=== PATIENT | female | born 1985 | race Caucasian/White ===

== ENCOUNTER 2018-09-01 08:04 | Inpatient (IN) | payer MEDICAID ==
[~2018-09-01] VITALS: Ht 165.1 cm; Wt 99.1 kg
[~2018-09-01 08:04] MED LIST: EPHEDrine 25 MG/5 ML SYG ONE; PRENAT PO
[2018-09-01] MEDS ORDERED: LACTATED RINGER'S 1,000 ML IV SCH (08:46)
[2018-09-01 08:51] VITALS: Ht 165.1 cm; Wt 99.1 kg
[2018-09-01] MEDS ORDERED: OXYTOCIN 30 UNITS/LR 500 ML IV SCH ×2 (09:00→19:53)
[2018-09-01] MEDS ORDERED: CEFAZOLIN 2 GM/50 ML (PMX) 50 ML IVPB SCH (09:00)
[2018-09-01] MEDS ORDERED: METHYLERGONOVINE 0.2 MG INJ IM PRN ×2 (09:00→20:00)
[2018-09-01] MEDS ORDERED: CARBOPROST 250 MCG INJ IM PRN ×2 (09:00→20:00)
[2018-09-01] MEDS ORDERED: OXYTOCIN 30 UNITS/LR 500 ML IV PRN ×2 (09:00→20:00)
[2018-09-01] MEDS ORDERED: MISOPROSTOL 200 MCG TAB PR PRN ×2 (09:00→20:00)
--- NOTE | 2018-09-01 12:40 | HP ---
Date/Time of Note Date/Time of Note DATE: 09/01/18 TIME: 12:30 OB - History Hx of Present Free Text/Dictation 33 years old -0-2-2 with breech presentation and single intrauterine at 39 weeks with MAGED of 09/26/2018 desired delivery and permanent surgical sterilization. She states good movement. She denies nausea, vomiting, shortness of breath, chest pain, headache, visual changes, vaginal bleeding or LOF. Chief Complaint: Scheduled for primary delivery and bilateral tubal ligation Estimated Due Date: Sep 08, 2018 : 5 Para: 2 Spontaneous : 2 Therapeutic : 0 Care: Good Care Ultrasounds: Normal mid trimester US Obstetrical Complications: None Medical Complications: None Past Family/Social History * Past Medical, Surgical, Family and Obstetric Histories reviewed from chart. Blood Type: O+ Rubella: immune RPR/VDRL: Negative GBS Status: Positive HBsAG: Negative OB Admission Exam Vital Signs Vital Signs Pressure 120/67, pulse rate 70/minutes, respiratory rate 16/minutes, temperature 98.6 Physical Exam HEENT: WNL Heart: Rhythm Normal Lungs: Clear Abdomen: WNL Extremities: Normal Reflexes: Normal Membranes: Intact Heart Rate: 130's Accelerations: Accelerations Present Decelerations: No Decelerations Varibility: Moderate Contractions on Admission: None Last 72 hours Lab Results CBC & BMP 09/01/18 09:16 OB Assessment/Plan Other plan: 33 years old -0-2-2 with breech presentation at 39 weeks desires repeat delivery and permanent surgical sterilization-FHR: No sign of metabolic acidosis- Category I -Continuous EFM, toco -CBC, blood type and screen -Please see the orders -O+/Rubella: Immune -GBS: Positive The risk of delivery including but not limited to bleeding, infection, injury to other organs (bowel, bladder, ureter, vessels, nerves), injury to fetus, blood transfusion, blood transfusion related infection, risk of anesthesia, adhesion, needs for future , removal of uterus or any other indicated surgery, permanent surgical sterilization, other contraceptive options including IUD, increased risk of ectopic if failure of procedure occurs discussed with the patient and her family. She expressed understanding. All of her questions were answered. She signed the informed consent. PHYSICIAN'S VERIFICATION OF INFORMED CONSENT The patient was counseled regarding the procedure, its indications, risks, potential complications and alternatives and any questions were answered. Consent was obtained. PLANNED PROCEDURE/TREATMENT: delivery with possible using vacuum/forceps, bilateral tubal ligation and any other indicated surgery PHYSICIAN'S VERIFICATION OF INFORMED CONSENT FOR BLOOD TRANSFUSION: There is a reasonable possibility that blood transfusion will be necessary as a result of the patient's procedure. I have discussed the following with the patient/patient's legal security representative: An explanation of the benefits and risks of the transfusion of blood or blood products and the possible a lternatives. All questions have been answered to the patient's satisfaction. INFORMED CONSENT:The patient has been informed of: The nature of the proposed care, treatment, services, medications, int erventions or procedures. Potential benefits, risks or side effects, including potential problems r elated to recuperation. The likelihood of achieving care treatment and service goals. Reasonable alternatives to the proposed care, treatment and service. The relevant risks, benefits and side effects related to alternatives, including the possible results of not receiving care, treatment and services. When indicated, any limitations on the confidentiality of information learned from or about the patient. If appropriate, the risks, benefits and alternatives of the drugs to be used for sedation/analgesia including moderate sedation. If appropriate, patient has been provided information on the risks, benefits and alternatives to the transfusion of blood and/or blood products. If appropriate, patient has been provided information regarding the [employer] Blood Act. AMANDA LAMB September 01, 2018 12:40
[2018-09-01] MEDS ORDERED: morphine SULFATE/PF (10 MG/10 ML) INJ ONE (13:46)
[2018-09-01] MEDS ORDERED: LACTATED RINGER'S 1,000 ML IV ONE (14:16)
--- NOTE | 2018-09-01 14:16 | PREAC ---
Date/Time of Note Date/Time of Note DATE: 09/01/18 TIME: 14:12 Anesthesia Eval and Record Evaluation Time Pre-Procedure Interview DATE: 09/01/18 TIME: 13:32 Age 33 Sex female NPO: 8 hrs Preoperative diagnosis iup @ 39 wks., , sterilization request, contractions, breech presentation Planned procedure primary c/s, bilateral tubal ligation Past Medical History Past Medical History: Includes : : (5), Para: (2), Gestational age: (39 wks.) Surgery & Anesthesia Issues No known issue Meds Anticoagulation: No Beta Chuy within 24 hr: No Reason Beta Chuy not given: Pt. not on B-Chuy Reported Medications Multivit/Min/Fol Ac/Iron/Pren* ( S*) 1 Tab Tab, 1 TAB PO DAILY, TAB 04/21/14 Current Medications Lactated Ringer's 1,000 ml @ 125 mls/hr Q8H IV Last administered on 09/01/18at 09:59; Admin Dose 125 MLS/HR; Start 09/01/18 at 08:46 Cefazolin Sodium/ Dextrose 50 ml @ 100 mls/hr ONCE IVPB ; Start 09/01/18 at 09:00 Oxytocin/Lactated Ringer's 500 ml @ 125 mls/hr POST IV ; Start 09/01/18 at 09:00 Oxytocin/Lactated Ringer's 500 ml @ 0 mls/hr ONCE PRN IV .VAGINAL BLEEDING; Start 09/01/18 at 09:00 Methylergonovine Maleate (Methergine) 0.2 mg ONCE PRN IM .VAGINAL BLEEDING; Start 09/01/18 at 09:00 Carboprost Tromethamine (Hemabate) 250 mcg ONCE PRN IM .VAGINAL BLEEDING; Start 09/01/18 at 09:00 Misoprostol (Cytotec) 1,000 mcg ONCE PRN NV .VAGINAL BLEEDING; Start 09/01/18 at 09:00 Meds reviewed: Yes Allergies Coded Allergies: No Known Allergy (Unverified , 04/21/14) Allergies Reviewed: Yes Labs/Studies Labs Reviewed: Reviewed by anesthesiologist Result Diagram: 09/01/18 0916 Laboratory Tests 09/01/18 09:16 Blood Bank Test 09/01/18 09:16 Antibody Screen NEGATIVE Blood Type O POSITIVE Rh Immune Globulin Candidate NO test: Positive Studies: ECG (na/), CXR (n/a) Pre-procedure Exam Airway: Adequate mouth opening, Adequate thyromental dist Mallampati: Mallampati II Teeth: Normal Lung: Normal Heart: Normal ASA Physical Status ASA physical status: 2 Emergency: E Planned Anesthetic General/MAC: MAC Neuraxial: Spinal Planned Pain Management Sub-arachniod narcotics, Local by surgeon Pre-operative Attestations Prior to commencing anesthesia and surgery, the patient was re-evaluated, there was verification of: *The patient's identity *The results of appropriate recent lab work and preoperative vital signs *The above evaluation not changing prior to induction *Anesthetic plan, risk benefits, alternative and complications discussed with patient/family; questions answered; patient/family understands, accepts and wishes to proceed. Adolescent Psychiatrist used MARGARITA NEW MD September 01, 2018 14:16
[2018-09-01] MEDS ORDERED: KETOROLAC 30 MG INJ IV PRN (14:30)
[2018-09-01] MEDS ORDERED: ZOLPIDEM 5 MG TAB PO PRN (14:30)
[2018-09-01] MEDS ORDERED: HYDROmorphONE 0.5 MG/0.5 ML SYG IV PRN ×2 (14:30)
[2018-09-01] MEDS ORDERED: MEPERIDINE 25 MG INJ IV PRN (14:30)
[2018-09-01] MEDS ORDERED: MIDAZOLAM 1 MG/ML 2 ML INJ ONE (14:30)
[2018-09-01] MEDS ORDERED: ONDANSETRON 4 MG INJ IV PRN (14:30)
[2018-09-01] MEDS ORDERED: NALOXONE (0.4 MG/ML) INJ IV PRN (14:30)
[2018-09-01] MEDS ORDERED: NALBUPHINE HCL (10 MG/1 ML) INJ IV PRN (14:30)
[2018-09-01] MEDS ORDERED: DIPHENHYDRAMINE 50 MG INJ IV PRN ×2 (14:30)
[2018-09-01] MEDS ORDERED: MIDAZOLAM 1 MG/ML 2 ML INJ IV PRN (14:30)
[2018-09-01] MEDS ORDERED: ONDANSETRON 4 MG INJ ONE (14:31)
[2018-09-01] MEDS ORDERED: KETOROLAC 30 MG INJ ONE (14:53)
[2018-09-01] MEDS ORDERED: OXYTOCIN 10 UNIT INJ ONE (15:03)
[2018-09-01] MEDS ORDERED: PROMETHAZINE (1.25 MG/ML) 5 ML CUP PO ONE (16:00)
[2018-09-01] MEDS ORDERED: METOCLOPRAMIDE 10 MG INJ ONE (17:34)
[2018-09-01] MEDS ORDERED: METOCLOPRAMIDE 10 MG INJ IV ONE (18:00)
--- NOTE | 2018-09-01 18:33 | OPR ---
Operative Report Planned Procedure Procedure date September 01, 2018 Procedure(s) 1. Primary low transverse delivery 2. Bilateral tubal ligation Performed by see signature line Mapping Pilot: LEE ANN SON MD Anesthesiologist: MARGARITA NEW MD Pre-procedure diagnosis 33 years old -0-2-2 with breech presentation at 39 weeks desires repeat bill arean delivery and permanent surgical sterilization- [id number] Anesthesia Type: [id number] spinal Post-Procedure Post-procedure diagnosis 33 years old -0-2-2 with transverse presentation at 39 weeks desires repeat delivery and permanent surgical sterilization- Findings 1. Normal uterus, fallopian tubes and ovaries 2. Viable female in transverse presentation. 8 at one minute and 9 in 5 minutes. Weight: 8 pounds 12 ounces. Time of delivery: 14:28 3. Placenta with three vessel cord 4. Amniotic fluid - Clear Estimated Blood Loss: 500 - 600 mls Specimen(s) none Grafts/Implant(s) none Complication(s) none Pt Condition post procedure: stable Disposition: PACU Procedure Description INDICATION AND HISTORY: A 33 years old -0-2-2 with breech presentation at 39 weeks desires repeat delivery and permanent surgical sterilization. The risk of delivery including but not limited to bleeding, infection, injury to other organs (bowel, bladder, ureter, vessels, nerves), injury to fetus, blood transfusion, blood transfusion related infection, risk of anesthesia, adhesion, needs for future , removal of uterus or any other indicated surgery, surgical sterilization, other contraceptive options including IUD, increased risk of ectopic occurs discussed with the patient and her family. She expressed understanding. All of her questions were answered. She signed the informed consent. DESCRIPTION OF OPERATION: The patient was taken to the operating room, where she was identified and the procedure was verified. The patient received two gram of Ancef 30 minutes prior to surgery. Spinal anesthesia was placed. The patient placed in the dorsal supine position with a left tilt. The heart rate was *bpm. The patient was then prepped and draped in the normal sterile fashion. A Pfannenstiel skin incision was made and carried down to the fascia with knife. The fascia was incised in the midline and the fascial incision was carried laterally with Henry scissors. The superior portion of the fascial incision was then grasped with Clark clamps and tented up and dissected off the underlying rectus muscle with sharp dissection. The lower portion of the fascial incision was then made in a similar fashion. The rectus muscle was and the peritoneum was entered. The peritoneal incision was then stretched and a bladder blade was inserted. Then, an incision was made in the lower uterine segment in a transverse fashion with a knife and extended bluntly. The was delivered atraumatically in double footling presentation with the above findings. The umbilical cord was clamped and cut. The neonatology resuscitation team was present and the baby was handed to them. A cord blood sample was obtained for further evaluation. The placenta and membrane, which appeared normal were Removed. The uterus was exteriorized and cleared of all clot and debris. The uterus was then closed in a two layer fashion with 0-Monocryl. At the time of closure, hemostasis was noted. Then the left fallopian tube was identified and was grasped using [place] clamp, segment of distal fallopian tube including fimbria was double ligated with O- plain, excised and sent to pathology. Same procedure repeated at the right side. Hemostasis of stump of both fallopian tube reassured. The gutters were irrigated. The peritoneum was reapproximated with 3-0 Vicryl. The muscle was reapproximated with 3-0 Vicryl. The fascia was approximated with 0-Vicryl in a running fashion. The subcutaneous tissue was re approximated with 3-0 vicryl. The skin was closed with 4-0 Monocryl. All instruments, sponges and needle counts were correct x3. The patient tolerated the procedure well. She transferred to the recovery room in stable condition. AMANDA LAMB September 01, 2018 18:33
[2018-09-01] MEDS: DEXTROSE 5%-LR 1,000 ML IV SCH (19:53)
[2018-09-01 20:00] VITALS: BP 108/52; PULSE 66; RESP 20
[2018-09-01] MEDS ORDERED: MAGNESIUM HYDROXIDE 30ML CUP PO PRN (20:00)
[2018-09-01] MEDS ORDERED: LANOLIN HPA 1 PKT TOP PRN (20:00)
[2018-09-01] MEDS ORDERED: METHYLERGONOVINE 0.2 MG TAB PO PRN (20:00)
[2018-09-01] MEDS: SENNA/DOCUSATE NA (8.6MG/50MG) TAB PO SCH (21:00)
[2018-09-02] VITALS: BP 110/57; PULSE 84; RESP 17
[2018-09-02 04:00] VITALS: BP 112/58; PULSE 80; RESP 18
--- NOTE | 2018-09-02 04:09 | PAC ---
Date/Time of Note Date/Time of Note DATE: 09/02/18 TIME: 04:09 Post-Anesthesia Notes Post-Anesthesia Note Last documented vital signs Vital Signs Date Temp Pulse Resp B/P (MAP) Pulse Ox O2 O2 Flow FiO2 Time Delivery Rate 09/01/18 98.0 66 20 108/52 98 Room Air 20:00 (70) Activity: WNL Respiratory function: WNL Cardiovascular function: WNL Mental status: Baseline Pain reasonably controlled: Yes Hydration appropriate: Yes Nausea/Vomiting absent: Yes MARGARITA NEW MD September 02, 2018 04:09
--- NOTE | 2018-09-02 04:11 | OPPN ---
Date/Time of Note Date/Time of Note DATE: 09/02/18 TIME: 04:09 Anesthesia Follow up Anesthesia Follow up Last documented vital signs Vital Signs Date Temp Pulse Resp B/P (MAP) Pulse Ox O2 O2 Flow FiO2 Time Delivery Rate 09/01/18 98.0 66 20 108/52 98 Room Air 20:00 (70) Respiratory function: WNL Cardiovascular function: WNL Comments S: pt. is POD #1. min. bt. pain. min. need for bt. pain meds ie. nsaids/opiates. ambulating. min. n/v. O: vss, afeb. A: min. bt pain sec. to it mso4. P: no complications. MARGARITA NEW MD September 02, 2018 04:11
[2018-09-02] MEDS: DEXTROSE 5%-LR 1,000 ML IV SCH ×2 (06:55→11:53)
[2018-09-02 08:00] VITALS: BP 107/49; PULSE 70; RESP 17
[2018-09-02] MEDS: SENNA/DOCUSATE NA (8.6MG/50MG) TAB PO SCH ×2 (09:20→21:00)
[2018-09-02] MEDS ORDERED: DIPHTH/TET/ACEL PERTUSS (ADULT) 0.5 ML VIAL IM* ONE (11:00)
[2018-09-02 12:00] VITALS: BP 123/62; PULSE 71; RESP 17
[2018-09-02] MEDS: HYDROCODONE/APAP (5/325) TAB NGT PRN ×2 (15:04→18:57)
--- NOTE | 2018-09-02 15:35 | QN ---
Documentation Comment Postop day #1 Status post primary and BTL Patient stable and afebrile Vital signs stable VS - Last 72 Hours, by Label Date Temp Pulse Resp B/P (MAP) Pulse Ox O2 O2 Flow FiO2 Time Delivery Rate 09/02/18 98.2 71 17 123/62 100 Room Air 12:00 (82) 09/02/18 98.0 70 17 107/49 100 Room Air 08:00 (68) 09/02/18 98.6 80 18 112/58 97 Room Air 04:00 (76) 09/02/18 98.2 84 17 110/57 98 Room Air 00:00 (74) 09/01/18 98.0 66 20 108/52 98 Room Air 20:00 (70) Hematology - 72 Hrs Test 09/01/18 09:16 09/02/18 06:39 Hematocrit 27.6 % (37.0-47.0) #L 24.1 % (37.0-47.0) L Hemoglobin 8.7 g/dl (12.0-16.0) #L 7.5 g/dl (12.0-16.0) L Mean Corpuscular 21.2 pg (29.0-33.0) #L 21.4 pg (29.0-33.0) L Hemoglobin Mean Corpuscular 31.5 g/dl (32.0-37.0) L 31.1 g/dl (32.0-37.0) L Hemoglobin Concent Mean Corpuscular Volume 67.3 fl (82.0-101.0) L 68.7 fl (82.0-101.0) L Mean Platelet Volume 10.3 fl (7.4-10.4) 10.5 fl (7.4-10.4) H Platelet Count 301 10^3/UL (140-415) 263 10^3/UL (140-415) Red Blood Count 4.10 10^6/ul (4.20-5.40) 3.51 10^6/ul (4.20-5.40) L L Red Cell Distribution 16.8 % (11.5-14.5) H 16.4 % (11.5-14.5) H Width White Blood Count 9.3 10^3/ul (4.8-10.8) # 10.5 10^3/ul (4.8-10.8) Abdomen soft, fundus firm Incision clean,dry,intact Extremities nontender Assessment and plan Patient stable and doing well Encouraged to ambulate CBC in a.m. Continue with routine postop care WOOD LOPES MD September 02, 2018 15:35
[2018-09-02 15:45] VITALS: BP 127/59; PULSE 86; RESP 16
[2018-09-02 20:45] VITALS: BP 116/64; PULSE 87; RESP 18
[2018-09-02] MEDS: HYDROCODONE/APAP (5/325) TAB GTB SCH (21:50)
[2018-09-02] MEDS: IBUPROFEN 800 MG TAB PO SCH (21:51)
[2018-09-03 04:00] VITALS: BP 111/58; PULSE 68; RESP 18
[2018-09-03] MEDS: IBUPROFEN 800 MG TAB PO SCH ×3 (05:35→21:59)
[2018-09-03] MEDS: HYDROCODONE/APAP (5/325) TAB GTB SCH ×3 (05:36→21:58)
[2018-09-03 08:00] VITALS: BP 115/57; PULSE 63; RESP 17
[2018-09-03] MEDS: FERROUS SULFATE (EC) 325 MG TAB PO SCH ×3 (08:38→20:52)
[2018-09-03] MEDS: SENNA/DOCUSATE NA (8.6MG/50MG) TAB PO SCH ×2 (08:38→20:52)
--- NOTE | 2018-09-03 12:06 | QN ---
Documentation Comment POD# 2 is stable afebrile tolerates diet No VB +BM +voids Vs stable Gen NAD Abd soft NT ND Genitalia No blood at perineum --->Discharge plan tomorrow with precautions ---<Repeat CBC GEOVANNY DUENAS M.D. September 03, 2018 12:06
[2018-09-03] MEDS ORDERED: CYANOCOBALAMIN 1000 MCG INJ IM ONE (12:30)
[2018-09-03] MEDS: SOD FERRIC GLUC COMPLX 125 MG in SOD CHLORIDE 0.9% 100 ML IVPB SCH (12:57)
[2018-09-03] MEDS ORDERED: NACL 0.9% 3 ML SYG IV SCH (15:30)
[2018-09-03 16:00] VITALS: BP 112/63; PULSE 70; RESP 16
[2018-09-03 20:30] VITALS: BP 119/56; PULSE 71; RESP 18
[2018-09-04 04:00] VITALS: BP 115/61; PULSE 61; RESP 18
[2018-09-04] MEDS: IBUPROFEN 800 MG TAB PO SCH ×2 (06:04→14:34)
[2018-09-04] MEDS: HYDROCODONE/APAP (5/325) TAB GTB SCH ×2 (06:05→14:34)
[2018-09-04 07:53] VITALS: BP 114/59; PULSE 65; RESP 18
[2018-09-04] MEDS ORDERED: MEASLES,MUMPS,RUBELLA VACCINE INJ SC* ONE (09:00)
[2018-09-04] MEDS ORDERED: DIPHTH/TET/ACEL PERTUSS (ADULT) 0.5 ML VIAL IM* ONE (09:00)
[2018-09-04] MEDS: SENNA/DOCUSATE NA (8.6MG/50MG) TAB PO SCH (09:54)
[2018-09-04] MEDS: FERROUS SULFATE (EC) 325 MG TAB PO SCH ×2 (09:54→13:12)
[2018-09-04] MEDS ORDERED: SOD FERRIC GLUC COMPLX 125 MG in SOD CHLORIDE 0.9% 100 ML IVPB ONE (11:30)
--- NOTE | 2018-09-04 12:41 | PN ---
Date/Time of Note Date/Time of Note DATE: 09/04/18 TIME: 12:40 OB Subjective Subjective Subjective POD# Patient is doing well. She denies nausea, vomiting, shortness of breath, chest pain, headache, dizziness. She has been ambulating without difficulty, tolerating regular diet. Pain is well controlled on current medications OB Objective Objective Objective VS - Last 72 Hours, by Label Date Temp Pulse Resp B/P (MAP) Pulse Ox O2 O2 Flow FiO2 Time Delivery Rate 09/04/18 98.0 65 18 114/59 07:53 (77) 09/04/18 98.0 61 18 115/61 Room Air 04:00 (79) 09/03/18 98.0 71 18 119/56 Room Air 20:30 (77) 09/03/18 98.3 70 16 112/63 Room Air 16:00 (79) 09/03/18 98.0 63 17 115/57 Room Air 08:00 (76) 09/03/18 98.3 68 18 111/58 Room Air 04:00 (75) 09/02/18 98.4 87 18 116/64 Room Air 20:45 (81) 09/02/18 98.7 86 16 127/59 15:45 (81) 09/02/18 98.2 71 17 123/62 100 Room Air 12:00 (82) 09/02/18 98.0 70 17 107/49 100 Room Air 08:00 (68) 09/02/18 98.6 80 18 112/58 97 Room Air 04:00 (76) 09/02/18 98.2 84 17 110/57 98 Room Air 00:00 (74) 09/01/18 98.0 66 20 108/52 98 Room Air 20:00 (70) General: AAO X 3, comfortable, NAD, appropriate mood and affect. ABD: +BS. Soft, non-tender. Uterus 2 cm below umbilicus Incision: Clear, dry, intact. No erythema, drainage or induration. Flank: No CVA tenderness (B/L) LE: Mild edema. No clubbing, cyanosis, thigh or calf tenderness (B/L). Homans 'sign is negative OB Assessment/Plan Other plan: 33-year-old 5 para 3-0-2-3 s/p repeat delivery and bilateral tubal ligation. POD#3 - AF, VSS - Baby is doing well, at bed side. She is bonding well - Contraception methods with R/B/A/FR discussed - Continue care - Discharge home - Rx and instruction given - Follow up in one and 6 weeks 2) iron deficiency anemia: Her hemoglobin on admission was 8.6, after delivery 7.5 and 6.8. Iron profile performed which revealed iron deficiency anemia. Ferrlecit 125 mg I would be given yesterday and today. Vitamin B12 1 mg IM given yesterday. I did recommend ferrous sulfate 325 mg every 8 hours for 2 months then every 12 hours for another 2 months. AMANDA LAMB September 04, 2018 12:41
--- NOTE | 2018-09-04 12:47 | DS ---
Date/Time of Note Date/Time of Note DATE: 09/04/18 TIME: 12:44 Obstetrical Discharge Record Final Diagnosis Final Diagnosis: Term delivered Other Final Diagnosis 33-year-old 5 para 3-0-2-3 s/p repeat delivery and bilateral tubal ligation. POD#3. Her course was unremarkable except for iron deficiency anemia. Her hemoglobin on admission was 8.6, after delivery 7.5 and 6.8. Iron profile study performed which revealed iron deficiency anemia. Ferrlecit 125 mg I would be given yesterday and today. Vitamin B12 1 mg IM given yesterday. I did recommend ferrous sulfate 325 mg every 8 hours for 2 months then every 12 hours for another 2 months. - AF, VSS - Baby is doing well, at bed side. She is bonding well - Continue care - Discharge home - Rx and instruction given - Follow up in one and 6 weeks Section Section: Repeat (And transverse presentation) Condition on Discharge Physical Assessment Voiding: Yes Bowel Movement: Yes Breast: Soft, non-tender Fundus: Firm Calf Tenderness: No Patient Condition: Stable AMANDA LAMB September 04, 2018 12:47
[2018-09-04] MEDS: SOD FERRIC GLUC COMPLX 125 MG in SOD CHLORIDE 0.9% 100 ML IVPB SCH (15:31)
[2018-09-04 16:00] VITALS: BP 129/71; PULSE 68; RESP 19
--- NOTE | 2018-09-05 18:55 | DELSUM ---
Delivery Summary A-C Datetime Report Generated by CPN: 09/05/2018 18:54 DELIVERY PERSONNEL Makeup Artist: Rose, Soraida MATERNAL INFORMATION Delivery Anesthesia: Spinal Medications in Delivery: see anesthesia Delivery QBL (ml): 600 Placenta Cultured: No Maternal Complications: None LABOR SUMMARY EDC: 09/08/2018 00:00 No. Babies in Womb: 1 Attempted: No Labor Anesthesia: None LABOR INFORMATION Reason for Induction: Not Applicable Oxytocin: N/A Group B Beta Strep: Positive Antibiotics # of Doses: 1 Antibiotics Time of Last Dose: 09/01/2018 14:30 Steroids Given: None Reason Steroids Not Administered: Not Applicable MEMBRANES Membranes Rupture Method: Artificial Rupture of Membranes: 09/01/2018 14:26 Length of Rupture (hr): 0.03 Amniotic Fluid Color: Clear Amniotic Fluid Amount: Moderate Amniotic Fluid Odor: None STAGES OF LABOR Stage 3 hr: 0 Stage 3 min: 2 CSECTION DELIVERY Primary Indication: Trans/Complex Presentatio Secondary Indication: N/A CSection Urgency: Non Elective CSection Incidence: Primary Labor: No Labor Elective: Nonelective CSection Incision: Lower Uterine Transverse Sterilization Procedure: Michelle BABY A INFORMATION Infant Delivery Date/Time: 09/01/2018 14:28 Method of Delivery: Born in Route : No : N/A Forceps: N/A Vacuum Extraction: N/A Shoulder Dystocia : N/A SHOULDER DYSTOCIA BABY A Delivery Date/Time: 09/01/2018 14:28 PRESENTATION/POSITION BABY A Presentation: Other Cephalic Presentation: N/A Breech Presentation: N/A PLACENTA INFORMATION BABY A Placenta Delivery Time : 09/01/2018 14:30 Placenta Method of Delivery: Manual Removal Placenta Status: Delivered SCORES BABY A Heart Rate 1 min: >100 bpm Resp Effort 1 min: Good Cry Reflex Irritability 1 min: Cough/Sneeze/Pulls Away Muscle Tone 1 min: Active Motion Color 1 min: Blue/Pale Resuscitation Effort 1 min: Tactile Stimulation; Oxygen SCORE 1 MIN: 8 Heart Rate 5 min: >100 bpm Resp Effort 5 min: Good Cry Reflex Irritability 5 min: Cough/Sneeze/Pulls Away Muscle Tone 5 min: Active Motion Color 5 min: Body [place], Extremit Blue Resuscitation Effort 5 min: Tactile Stimulation SCORE 5 MIN: 9 INFANT INFORMATION BABY A Gestational Age at Delivery: 40.3 Gestational Status: Full Term- 39- 40.6 Weeks Infant Outcome : Liveborn Condition : Stable Infant Sex: Female IDENTIFICATION/MEDS BABY A ID Band Number: [id number] ID Band Location: Right Leg; Left Arm Sensor Applied: Yes Sensor Number: [id number] Sensor Location : Cord Clamp Vitamin K Given : Aquamephyton 0.5 mg IM Erythromycin Given: Given Both Eyes WEIGHT/LENGTH BABY A Infant Birthweight (gm): 3975 Weight (lb): 8 Infant Weight (oz): 12 Length (in): 22.00 Length (cm): 55.88 CORD INFORMATION BABY A No. Cord Vessels: 3 Nuchal Cord : N/A Cord Blood Taken: Yes Suction: Mouth; Nose ASSESSMENT BABY A Complications: None Physical Findings at Delivery: Within Normal Limits Respirations: Appears Normal Scientific Linguist/ALS Called : Yes Infant Care By: RT AND MEN RN Transferred To: Remains with Mother
== END 2018-09-04 18:45 | disposition home or self-care (01) | DRG 785 ==
LOC: L-D 08:04 → PP1 19:27
PROVIDERS: ADMIT Obstetrics & Gynecology; ATTEND Obstetrics & Gynecology
PROC: 0UB70ZZ Excision of Bilateral Fallopian Tubes, Open Approach (ICD-10-PCS; 2018-09-01)
PROC: 10D00Z1 Extraction of Products of Conception, Low, Open Approach (ICD-10-PCS; principal; 2018-09-01 11:00)
DX: O32.8XX0 Maternal care for other malpresentation of fetus, not applicable or unspecified (principal); O99.824 Streptococcus B carrier state complicating childbirth; O99.02 Anemia complicating childbirth; D50.9 Iron deficiency anemia, unspecified; Z3A.39 39 weeks gestation of pregnancy; Z37.0 Single live birth; Z30.2 Encounter for sterilization
CPT/HCPCS: 76815; 82728; 83020; 83540; 85025; 85610; 85730; 86592; 86850; 86900; 86901; 87340; 88302; 90715; 99464; J0690; J1885; J2250; J2274; J2405; J2590; J2765; J2916; J3420; J7120; J7121